=== PATIENT | female | born 1965 | race African-American/Black ===

== ENCOUNTER 2016-09-13 14:36 | Emergency (ER) | payer OTHER ==
[2016-09-13 14:44] VITALS: BP 109/65
--- NOTE | 2016-09-13 14:46 | ER Document Report ---
ED Medical Screen (RME) - General Stated Complaint: BACK PAIN Notes: 51 yo female c/o right flank pain radiating to RLQ since yesterday. no urinary symptoms. no n/v. no fever. + hx/o IDDM TRAVEL OUTSIDE OF THE [place] IN LAST 30 DAYS: No - Related Data Allergies/Adverse Reactions: No Known Allergies Allergy (Verified 09/13/16 14:44) Past Medical History - Past Medical History Cardiac Medical History: Reports: Hx Hypercholesterolemia, Hx Hypertension Endocrine Medical History: Reports: Hx Diabetes Mellitus Type 1, Hx Diabetes Mellitus Type 2 Psychiatric Medical History: Reports: Hx Anxiety - Lots of stress Past Surgical History: Reports: Hx Cardiac Surgery - open heart - Immunizations Hx Diphtheria, Pertussis, Tetanus Vaccination: Yes Physical Exam - Vital signs Vitals: Temp Pulse Resp BP Pulse Ox 98.0 F 100 20 109/65 99 09/13/16 14:43 09/13/16 14:43 09/13/16 14:43 09/13/16 14:43 09/13/16 14:43 Course - Vital Signs Vital signs: Temp Pulse Resp BP Pulse Ox 98.0 F 100 20 109/65 99 09/13/16 14:43 09/13/16 14:43 09/13/16 14:43 09/13/16 14:43 09/13/16 14:43
[2016-09-13 15:06] LABS: ABSOLUTE BASOPHILS # (AUTO) 0.1 10^3/uL (0.0-0.2); ABSOLUTE LYMPHOCYTES (AUTO) 1.2 10^3/uL (0.5-4.7); ABSOLUTE MONOCYTES (AUTO) 0.8 10^3/uL (0.1-1.4); ABSOLUTE NEUT (AUTO) 4.6 10^3/uL (1.7-8.2); BASOPHILS % (AUTO) 1.1 % (0-2); HEMATOCRIT 40.5 % (36.0-47.0); HEMOGLOBIN 13.8 g/dL (12.0-15.5); HGB HCT DIFFERENCE 0.9; MEAN CORPUSCULAR HEMOGLOBIN 31.8 pg (27.0-33.4); MEAN CORPUSCULAR HGB CONC 34.1 g/dL (32.0-36.0); MEAN CORPUSCULAR VOLUME 93 fl (80-97); MONOCYTES % (AUTO) 11.7 % (3-13); RED BLOOD COUNT 4.34 10^6/uL (3.72-5.28); RED CELL DISTRIBUTION WIDTH 13.9 % (11.5-14.0); SEGMENTED NEUTROPHILS % (AUTO) 69.2 % (42-78); WHITE BLOOD COUNT 6.6 10^3/uL (4.0-10.5)
[2016-09-13 15:12] LABS: APPEARANCE,URINE SLIGHTLY-CLOUDY; BILIRUBIN,URINE NEGATIVE (NEGATIVE); GLUCOSE, URINE 50 mg/dL (NEGATIVE); KETONES,URINE NEGATIVE (NEGATIVE); LEUKOCYTE ESTERASE,URINE LARGE (NEGATIVE); NITRITE,URINE NEGATIVE (NEGATIVE); PROTEIN,URINE NEGATIVE (NEGATIVE); URINE SPECIFIC GRAVITY 1.006; UROBILINOGEN,URINE NEGATIVE mg/dL (<2.0)
[2016-09-13 15:30] LABS: ALANINE AMINOTRANSFERASE 20 U/L (9-52); ALBUMIN 3.8 g/dL (3.5-5.0); ALKALINE PHOSPHATASE 95 U/L (38-126); ANION GAP 10 (5-19); ASPARTATE AMINO TRANSFERASE 17 U/L (14-36); BILIRUBIN,TOTAL 0.6 mg/dL (0.2-1.3); BLOOD UREA NITROGEN 9 mg/dL (7-20); CARBON DIOXIDE 26 mmol/L (22-30); CHLORIDE 101 mmol/L (98-107); CREATININE RESULT 0.59 mg/dL (0.52-1.25); GLUCOSE 150 mg/dL (75-110); POTASSIUM 3.5 mmol/L (3.6-5.0); SODIUM 136.9 mmol/L (137-145); TOTAL PROTEIN 7.4 g/dL (6.3-8.2)
--- NOTE | 2016-09-13 17:14 | ER Document Report ---
ED Neck/Back Problem - General Chief Complaint: Back Pain Stated Complaint: BACK PAIN Notes: Patient is experiencing back pain for the past week that got worse last night. It's in the right flank area. 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 Denies any nausea or vomiting or diarrhea. Had a very large bowel movement today. Does not have any abdominal pain. Has no UTI symptoms. No significant cough or cold or chest congestion. Has not had any fever. Patient's last menstrual cycle was a couple of months ago. She's not sure if she is going through the "change", but says she has not been sexually active for over a year. History of pulmonary stenosis for which she's had a couple of cardiac surgeries. PMH: Hypertension, IDDM, high cholesterol. TRAVEL OUTSIDE OF THE [place] IN LAST 30 DAYS: No - Related Data Allergies/Adverse Reactions: No Known Allergies Allergy (Verified 09/13/16 14:44) Past Medical History - Social History Smoking Status: Never Smoker Chew tobacco use (# tins/day): No Frequency of alcohol use: None Drug Abuse: None Family History: Reviewed & Not Pertinent Patient has suicidal ideation: No Patient has homicidal ideation: No - Past Medical History Cardiac Medical History: Reports: Hx Hypercholesterolemia, Hx Hypertension, Hx Heart Murmur - History of pulmonic stenosis and has had a couple of surgical procedures. Endocrine Medical History: Reports: Hx Diabetes Mellitus Type 1, Hx Diabetes Mellitus Type 2 Psychiatric Medical History: Reports: Hx Anxiety - Lots of stress Past Surgical History: Reports: Hx Cardiac Surgery - open heart for pulmonic stenosis - Immunizations Hx Diphtheria, Pertussis, Tetanus Vaccination: Yes Hx Pneumococcal Vaccination: 07/16/11 Review of Systems - Review of Systems Notes: REVIEW OF SYSTEMS: CONSTITUTIONAL : Denies fever. EENT: Denies eye, ear, nose or mouth or throat pain or other symptoms. CARDIOVASCULAR: Denies chest pain. RESPIRATORY: Denies cough, chest congestion, or shortness of breath. GASTROINTESTINAL: Denies abdominal pain or nausea, vomiting, or diarrhea. GENITOURINARY: Denies difficulty or painful urinating, urinary frequency, blood in urine. MUSCULOSKELETAL: See history of present illness. Denies neck pain. Denies joint pain or swelling. SKIN: Denies rash or skin lesions. NEUROLOGICAL: Denies LOC or altered mental status. Denies headache. Denies sensory loss or motor deficits. ALL OTHER SYSTEMS REVIEWED AND NEGATIVE. Physical Exam - Vital signs Vitals: Temp Pulse Resp BP Pulse Ox 98.0 F 100 20 109/65 99 09/13/16 14:43 09/13/16 14:43 09/13/16 14:43 09/13/16 14:43 09/13/16 14:43 Interpretation: Normal - Notes Notes: PHYSICAL EXAMINATION: GENERAL: Well-appearing, in no acute distress. Vital signs are normal. Afebrile. HEAD: Atraumatic, normocephalic. NECK: Normal range of motion, supple. LUNGS: Breath sounds clear and equal bilaterally. HEART: Regular rate and rhythm without murmurs. ABDOMEN: Soft, nontender. No guarding or rebound. No masses felt. No bruits heard. BACK: No tenderness throughout entire back. Tender to percussion in the right paralumbar flank region. EXTREMITIES: Normal range of motion without pain. NEUROLOGICAL: Normal speech, normal gait. Normal sensory, motor, and reflex exams. Awake, alert, and oriented x3. Cranial nerves normal. PSYCH: Normal mood, normal affect. SKIN: Warm, dry, no rashes. Course - Vital Signs Vital signs: Temp Pulse Resp BP Pulse Ox 98.0 F 100 20 109/65 99 09/13/16 14:43 09/13/16 14:43 09/13/16 14:43 09/13/16 14:43 09/13/16 14:43 - Laboratory Result Diagrams: 09/13/16 14:55 09/13/16 14:55 Laboratory results interpreted by me: 09/13/16 09/13/16 14:55 14:55 Sodium 136.9 L Potassium 3.5 L Glucose 150 H Urine Glucose (UA) 50 H Urine Blood MODERATE H Ur Leukocyte Esterase LARGE H 09/13/16 17:25 Urinalysis is suggestive of a possible UTI. Urine has been cultured. Patient will be placed on Macrobid. Given a few days off from work. Discharge - Discharge Clinical Impression: Flank pain, acute UTI (urinary tract infection) Qualifiers: Urinary tract infection type: site unspecified Hematuria presence: without hematuria Qualified Code(s): N39.0 - Urinary tract infection, site not specified Condition: Stable Disposition: HOME, SELF-CARE Additional Instructions: Flank Pain We weren't able to prove an exact cause for your flank pain. Pain in the flank can be caused by a muscle strain or spasm. Sometimes a kidney stone causes pain, but can't be found on our tests. Infection in the kidney should be evident on a urine test. Early shingles can occasionally cause flank pain, without the rash that proves the diagnosis. On rare occasions, disease of the pancreas, aorta, spleen, or colon can create pain in the flank. At this time, there's no evidence of a dangerous condition, and it seems safe for you to be at home. If the pain goes away and does not come back, no further testing will be needed. If pain persists, or becomes more severe, we may need to repeat some tests or order additional new testing. Blood in the urine, urgency to urinate frequently, and pain that radiates to the groin can indicate a kidney stone. Fever may mean that the pain is due to infection, either of the kidney or the colon (diverticulitis). If your pain is early shingles, you should develop an eruption of blisters in the painful area within a few days. Call the doctor or return if you have pain that is spreading or becoming more severe, pain that does not resolve with time, fever, or any other new symptoms. URINARY TRACT INFECTION: Your evaluation indicates that you have a urinary tract infection. This is due to germs growing in the bladder. This is a common problem. This infection usually responds quickly to antibiotics. Your antibiotic should be taken exactly as prescribed. Drink plenty of fluids -- three to four quarts a day. Occasionally, a bladder anesthetic will be prescribed to help stop the feeling of urgency until the antibiotic has a chance to clear the infection. This may cause your urine to be dark orange. Certain urine infections require a culture. If the doctor obtained a culture, the results will be back in two days. You should call to see if a change in treatment is needed. A repeat urinalysis after you finish treatment is often recommended. The physician will let you know if further testing is required. Call the doctor if you develop fever, chills, flank pain, inability to urinate, or blood in the urine. ANTIBIOTIC THERAPY: You have been given an antibiotic prescription. It's important that you take all the medication, unless instructed otherwise by your physician. Failure to complete the entire course can result in relapse of your condition. Common side effects of antibiotics include nausea, intestinal cramping, or diarrhea. Women may develop vaginal yeast infections, and babies can get yeast (thrush) in the mouth following the use of antibiotics. Contact your physician if you develop significant side effects from this medication. Allergy to this antibiotic can result in hives, wheezing, faintness, or itching. If symptoms of allergy occur, stop the medication and call the doctor. NITROFURANTOIN (MACRODANTIN, MACROBID): You have received a prescription for nitrofurantoin (Macrodantin). This antibiotic is used for urinary tract infections. Women who are or nursing should notify the physician before taking this medicine. If you have ever had a problem caused by this medication in the past, be sure the physician is aware of it. Common side effects of this medicine include nausea, vomiting, or decreased appetite. Notify your physician if these side effects become severe. Immediately stop this medicine and call the physician if you develop cough , shortness of breath, chest pain, weakness, jaundice (yellow color of the skin and whites of the eyes), or a skin rash. Oral Narcotic Medication You have been given a prescription for pain control. This medication is a narcotic. It's best taken with food, as nausea can result if taken on an empty stomach. Don't operate machinery or drive within six hours of taking this medication. Do not combine this medicine with alcohol, or with any medication which can cause sedation (such as cold tablets or sleeping pills) unless you get permission from the physician. Narcotics tend to cause constipation. If possible, drink plenty of fluids and eat a diet high in fiber and fruits. FOLLOW-UP CARE: If you have been referred to a physician for follow-up care, call the physician s office for an appointment as you were instructed or within the next two days. If you experience worsening or a significant change in your symptoms, notify the physician immediately or return to the Emergency Department at any time for re-evaluation. Return for reevaluation if you develop new or worsening symptoms such as fever, vomiting, or worsening back/flank pain. Prescriptions: Nitrofurantoin/Nitrofuran Mac [Macrobid 100 mg Capsule] 1 tab PO BID #20 capsule Oxycodone HCl/Acetaminophen [Percocet 5-325 mg Tablet] 1 - 2 tab PO Q4H PRN #15 tablet PRN Reason: Forms: Return to Work
== END 2016-09-13 17:21 | disposition home or self-care (01) ==
LOC: ER 14:36
DX: N39.0 Urinary tract infection, site not specified (principal); R10.9 Unspecified abdominal pain; M54.9 Dorsalgia, unspecified; I10 Essential (primary) hypertension; E78.00 Pure hypercholesterolemia, unspecified; Z79.4 Long term (current) use of insulin
CPT/HCPCS: 36415; 80053; 81001; 85025; 87086; 99284

== ENCOUNTER 2016-12-04 00:17 | Emergency (ER) | payer OTHER ==
--- NOTE | 2016-12-04 03:46 | ER Document Report ---
ED GI/ - General Chief Complaint: Vaginal Itching Stated Complaint: VAGINAL ISSUE Time Seen by Provider: 12/04/16 03:39 Notes: Patient is a 51-year-old female who comes emergency department for chief complaint of 2 days of vaginal irritation and dysuria. She states there is a whitish looking discharge. She is diabetic, she states she binge ate for a few days but now she has resumed her normal insulin. She has not been on recent antibiotics. She states she is not sexually active. She denies any fever, chills, nausea, vomiting, flank pain. She denies any vaginal bleeding. TRAVEL OUTSIDE OF THE [place] IN LAST 30 DAYS: No - Related Data Allergies/Adverse Reactions: No Known Allergies Allergy (Verified 12/04/16 01:41) Past Medical History - General Information source: Patient - Social History Smoking Status: Never Smoker Frequency of alcohol use: None Drug Abuse: None Lives with: Family Family History: Reviewed & Not Pertinent Patient has suicidal ideation: No Patient has homicidal ideation: No - Past Medical History Cardiac Medical History: Reports: Hx Hypercholesterolemia, Hx Hypertension, Hx Heart Murmur - History of pulmonic stenosis and has had a couple of surgical procedures. Endocrine Medical History: Reports: Hx Diabetes Mellitus Type 2 Renal/ Medical History: Denies: Hx Peritoneal Dialysis Psychiatric Medical History: Reports: Hx Anxiety - Lots of stress Past Surgical History: Reports: Hx Cardiac Surgery - open heart for pulmonic stenosis - Immunizations Hx Diphtheria, Pertussis, Tetanus Vaccination: Yes Hx Pneumococcal Vaccination: 07/16/11 Review of Systems - Review of Systems Constitutional: No symptoms reported EENT: No symptoms reported Cardiovascular: No symptoms reported Respiratory: No symptoms reported Gastrointestinal: No symptoms reported Genitourinary: See HPI Female Genitourinary: See HPI Musculoskeletal: No symptoms reported Skin: No symptoms reported Hematologic/Lymphatic: No symptoms reported Neurological/Psychological: No symptoms reported Physical Exam - Vital signs Vitals: Temp Pulse Resp BP Pulse Ox 97.8 F 98 16 125/74 97 12/04/16 01:37 12/04/16 01:37 12/04/16 01:37 12/04/16 01:37 12/04/16 01:37 Interpretation: Normal - General General appearance: Alert, Other - Patient shifts frequently and appears mildly uncomfortable - HEENT Head: Normocephalic, Atraumatic Eyes: Normal Conjunctiva: Normal Extraocular movements intact: Yes Eyelashes: Normal Pupils: PERRL Mouth/Lips: Normal Mucous membranes: Normal Pharynx: Normal Neck: Normal - Respiratory Respiratory status: No respiratory distress Chest status: Nontender Breath sounds: Normal Chest palpation: Normal - Cardiovascular Rhythm: Regular. No: Tachycardia Heart sounds: Normal auscultation, S1 appreciated, S2 appreciated Murmur: No - Abdominal Inspection: Normal Distension: No distension Bowel sounds: Normal Tenderness: Nontender. No: Tender Organomegaly: No organomegaly - Genitourinary External exam: Lesions - dotted areas that appear to be excoriated vesicles on the distal inner labial folds, erythema and irritation to all labias, no induration or fluctuance. PCT Merry present during exam Speculum exam: Cervix closed, Vaginal discharge - large amount of whitish vaginal discharge Vaginal bleeding: None Bimanuel exam: Normal. No: Cervical motion tender - Back Back: Normal, Nontender - Extremities General upper extremity: Normal inspection, Nontender, Normal color, Normal ROM , Normal temperature General lower extremity: Normal inspection, Nontender, Normal color, Normal ROM , Normal temperature, Normal weight bearing. No: Leola's sign - Neurological Neuro grossly intact: Yes Cognition: Normal Orientation: AAOx4 Sandra Coma Scale Eye Opening: Spontaneous Sandra Coma Scale Verbal: Oriented Sandra Coma Scale Motor: Obeys Commands Sandra Coma Scale Total: 15 Speech: Normal Motor strength normal: LUE, RUE, LLE, RLE Sensory: Normal - Psychological Associated symptoms: Normal affect, Normal mood - Skin Skin Temperature: Warm Skin Moisture: Dry Skin Color: Normal Course - Re-evaluation Re-evalutation: On examination patient is uncomfortable, there is a large amount of vaginal irritation, discharge, there are abnormal areas on the inner labialis which appear to be excoriated vesicles no induration or fluctuation. Viral culture pending,. Nontender abdomen, no flank pain, no fever. Wet mount shows 3+ bacteria and 3+ white blood cells patient will be treated for bacterial vaginosis, covered for pelvic infection, treated for potential HSV viral outbreak,. Patient requests to be called at phone #[phone] if her pending gonorrhea or chlamydia results are positive. Gonorrhea and Chlamydia are negative. - Vital Signs Vital signs: Temp Pulse Resp BP Pulse Ox 97.7 F 75 20 110/67 94 05/22/17 05:50 12/04/16 05:50 12/04/16 05:50 12/04/16 05:50 12/04/16 05:50 Discharge - Discharge Clinical Impression: Vaginal pain, Vaginal discharge Condition: Stable Disposition: HOME, SELF-CARE Additional Instructions: You have been treated for a pelvic infection, also covered for bacterial vaginosis and possible HSV infection. Follow up with Primary Care. Return to the ED for any concerning or worsening symptoms. Prescriptions: Hydrocodone/Acetaminophen [Blue Grass 5-325 mg Tablet] 1 - 2 tab PO ASDIR #10 tablet Metronidazole [Flagyl 500 mg Tablet] 500 mg PO BID #14 tablet Valacyclovir HCl [Valtrex] 1,000 mg PO BID #20 tablet Forms: Return to Work
[2016-12-04] MEDS ORDERED: LIDOCAINE 1% INJ-PF (10 MG/ML) 30 ML SDV INJ ONE (05:15)
[2016-12-04] MEDS ORDERED: AZITHROMYCIN 250 MG TABLET PO ONE (05:15)
[2016-12-04] MEDS ORDERED: CEFTRIAXONE INJ 250 MG VIAL IM ONE (05:15)
[2016-12-04] MEDS ORDERED: METRONIDAZOLE 500 MG TABLET PO ONE (05:16)
[2016-12-04] MEDS ORDERED: VALACYCLOVIR HCL 500 MG TABLET PO ONE (05:25)
[2016-12-04] MEDS ORDERED: HYDROCODONE/ACETAMINOPHEN 5-325 MG 6 TAB/DSPK PO PRN (05:29)
[2016-12-04 06:06] LABS: CHLAM PCR NOT DETECTED (NOT DETECT)
[2016-12-04 06:15] VITALS: BP 110/67
== END 2016-12-04 06:00 | disposition home or self-care (01) ==
LOC: ER 00:17
DX: R10.2 Pelvic and perineal pain (principal); L98.9 Disorder of the skin and subcutaneous tissue, unspecified; N89.8 Other specified noninflammatory disorders of vagina; R30.0 Dysuria; E11.9 Type 2 diabetes mellitus without complications; I10 Essential (primary) hypertension
CPT/HCPCS: 99283; 96372; 87210; 87252; 87491; 87591; J3490; J0696

== ENCOUNTER 2016-12-18 16:38 | Emergency (ER) | payer OTHER ==
[2016-12-18 16:43] VITALS: BP 115/82
--- NOTE | 2016-12-18 17:48 | ER Document Report ---
ED GI/ - General Chief Complaint: Vaginal Itching Stated Complaint: VAGINAL PAIN/URINARY SYMPTOMS Time Seen by Provider: 12/18/16 16:58 Mode of Arrival: Ambulatory Information source: Patient Notes: 51-year-old female presents to ED for dental pain itching and discharge. States she has pain with urination. She states she was recently treated with Valtrex for vaginal herpes and Flagyl for vaginal itching and the pain and itching have returned. TRAVEL OUTSIDE OF THE [place] IN LAST 30 DAYS: No - HPI Patient complains to provider of: Vaginal discharge, Vaginal pain, Other - No acute Onset: Last week Timing/Duration: Intermittent Quality of pain: Burning Severity at maximum: Moderate Severity in ED: Moderate Pain Level: 3 Location: Vaginal Vaginal bleeding (Compared to normal period): None Associated symptoms: Vaginal discharge, Other - Vaginal pain and itching Exacerbated by: Movement, Other - Urination Relieved by: Denies Similar symptoms previously: Yes Recently seen / treated by doctor: Yes - Related Data Allergies/Adverse Reactions: No Known Allergies Allergy (Verified 12/18/16 16:41) Past Medical History - General Information source: Patient - Social History Smoking Status: Never Smoker Cigarette use (# per day): No Chew tobacco use (# tins/day): No Smoking Education Provided: No Frequency of alcohol use: Occasional Drug Abuse: None Lives with: Family Family History: DM. denies: Arthritis, CAD, COPD, CVA, Hyperlipidemia, Hypertension, Malignancy, Thyroid Disfunction Patient has suicidal ideation: No Patient has homicidal ideation: No - Past Medical History Cardiac Medical History: Reports: Hx Hypercholesterolemia, Hx Hypertension, Hx Heart Murmur - History of pulmonic stenosis and has had a couple of surgical procedures. Pulmonary Medical History: Reports: None EENT Medical History: Reports: None Neurological Medical History: Reports: None Endocrine Medical History: Reports: Hx Diabetes Mellitus Type 1, Hx Diabetes Mellitus Type 2 Renal/ Medical History: Reports: Other - Vaginal herpes Malignancy Medical History: Reports: None GI Medical History: Reports: None Musculoskeltal Medical History: Reports None Skin Medical History: Reports None Psychiatric Medical History: Reports: Hx Anxiety - Lots of stress Traumatic Medical History: Reports: None Infectious Medical History: Reports: None Past Surgical History: Reports: Hx Cardiac Surgery - open heart for pulmonic stenosis - Immunizations Immunizations up to date: Yes Hx Diphtheria, Pertussis, Tetanus Vaccination: Yes Hx Pneumococcal Vaccination: 07/16/11 Review of Systems - Review of Systems Constitutional: No symptoms reported EENT: No symptoms reported Cardiovascular: No symptoms reported Respiratory: No symptoms reported Gastrointestinal: No symptoms reported Genitourinary: No symptoms reported Female Genitourinary: Vaginal discharge, Other - Vaginal pain and itching Musculoskeletal: No symptoms reported Skin: No symptoms reported Hematologic/Lymphatic: No symptoms reported Neurological/Psychological: No symptoms reported -: Yes All other systems reviewed and negative Physical Exam - Vital signs Vitals: Temp Pulse Resp BP Pulse Ox 97.4 F 90 18 115/82 98 12/18/16 16:41 12/18/16 16:41 12/18/16 16:41 12/18/16 16:41 12/18/16 16:41 Interpretation: Normal - General General appearance: Appears well, Alert - HEENT Head: Normocephalic, Atraumatic Eyes: Normal Pupils: PERRL - Respiratory Respiratory status: No respiratory distress Chest status: Nontender Breath sounds: Normal Chest palpation: Normal - Cardiovascular Rhythm: Regular Heart sounds: Normal auscultation Murmur: No - Abdominal Inspection: Normal Distension: No distension Bowel sounds: Normal Tenderness: Nontender Organomegaly: No organomegaly - Genitourinary External exam: Normal. No: Lesions Speculum exam: Vaginal discharge - Minimal white Vaginal bleeding: None Bimanuel exam: Cervical motion tender, Adnexal mass - Back Back: Normal, Nontender - Extremities General upper extremity: Normal inspection, Nontender, Normal color, Normal ROM , Normal temperature General lower extremity: Normal inspection, Nontender, Normal color, Normal ROM , Normal temperature, Normal weight bearing. No: Elola's sign - Neurological Neuro grossly intact: Yes Cognition: Normal Orientation: AAOx4 Sandra Coma Scale Eye Opening: Spontaneous Sandra Coma Scale Verbal: Oriented Sandra Coma Scale Motor: Obeys Commands Sandra Coma Scale Total: 15 Speech: Normal Motor strength normal: LUE, RUE, LLE, RLE Sensory: Normal - Psychological Associated symptoms: Normal affect, Normal mood - Skin Skin Temperature: Warm Skin Moisture: Dry Skin Color: Normal Course - Re-evaluation Re-evalutation: 12/18/16 19:43 Patient treated with flagyl and diflucan. - Vital Signs Vital signs: Temp Pulse Resp BP Pulse Ox 97.4 F 90 18 115/82 98 12/18/16 16:41 12/18/16 16:41 12/18/16 16:41 12/18/16 16:41 12/18/16 16:41 - Laboratory Laboratory results interpreted by me: 12/18/16 17:33 Urine Glucose (UA) >=500 H Urine Blood MODERATE H Ur Leukocyte Esterase MODERATE H Discharge - Discharge Clinical Impression: Bacterial vaginosis, Lizett vaginitis Condition: Stable Disposition: HOME, SELF-CARE Instructions: Family Physicians / Practices Additional Instructions: VAGINOSIS, BACTERIAL: Your exam shows you have bacterial vaginosis. This condition is due to an overgrowth of bacteria in the vagina. Symptoms may include vaginal itching or pain, a smelly discharge, and sometimes burning with urination. Normally this is not transmitted by sexual contact. Vaginosis can be treated with oral or topical antibiotics. Metronidazole ( Flagyl) pills are usually effective. Topical vaginal creams include Cleocin and Metro-Gel. You should avoid sexual contact until your symptoms are all better. Call the doctor if you develop pelvic pain, fever, or problems with urination, or if you don't improve as expected. VAGINAL YEAST INFECTION: You have evidence of a yeast infection -- called "lizett." A vaginal yeast infection often causes itching and discharge. While not dangerous, it can be very unpleasant. A yeast infection often follows the use of powerful antibiotics. It is more likely to occur in diabetics. The treatment now is usually a single pill of Diflucan, but also an antifungal cream or suppository may be used for a few days. You do not need to avoid sexual intercourse. Recurrences are common. You can make a recurrence less likely by wearing cotton underwear and avoiding tight clothing. For mild recurrences, you can try dwuw-oeo-vahxyir creams or suppositories that are made specifically for yeast. If the symptoms do not resolve, you should follow up for re-examination. Sometimes treatment of the sexual partner is necessary if infections are recurrent. METRONIDAZOLE: Metronidazole (Flagyl) has been prescribed. This medication is used to kill a type of bacteria called anaerobes, and protozoan parasites such as trichomonas and Giardia. Flagyl often causes a metallic taste in the mouth and mild nausea. Do not use alcohol in any form with Flagyl (including alcohol in medication elixirs). Flagyl interacts with alcohol to cause flushing, palpitations, headache, stomach cramps, and vomiting. Do not use Flagyl if you are taking Antabuse (disulfiram). Call the doctor at once if you develop rash, shortness of breath, itching, or lightheadedness. FLUCONAZOLE: Fluconazole (Diflucan) is an antifungal drug. It is useful for serious fungal infections, but is also excellent for oral or vaginal yeast infections. Diflucan interacts with some medicines. This is a concern if you are taking anticoagulants (such as Coumadin), phenytoin (Dilantin), cyclosporin, or oral hypoglycemics (such as tolbutamide, Orinase, glipizide, Glucotrol, glyburide, DiaBeta, Glynase, and Micronase). Be sure the doctor knows if you are taking one of these medicines. We don't know how Diflucan affects . If you are planning to become , discuss this with your doctor. Diflucan has few side effects. Minor side effects may include nausea, headache, or diarrhea. Call the doctor if you develop a skin rash, shortness of breath, or other new symptoms. FOLLOW-UP CARE: If you have been referred to a physician for follow-up care, call the physician s office for an appointment as you were instructed or within the next two days. If you experience worsening or a significant change in your symptoms, notify the physician immediately or return to the Emergency Department at any time for re-evaluation. Prescriptions: Metronidazole [Flagyl 500 mg Tablet] 500 mg PO BID #14 tablet Forms: Return to Work
[2016-12-18 18:02] LABS: APPEARANCE,URINE SLIGHTLY-CLOUDY; BILIRUBIN,URINE NEGATIVE (NEGATIVE); GLUCOSE, URINE >=500 mg/dL (NEGATIVE); KETONES,URINE NEGATIVE (NEGATIVE); LEUKOCYTE ESTERASE,URINE MODERATE (NEGATIVE); NITRITE,URINE NEGATIVE (NEGATIVE); PROTEIN,URINE NEGATIVE (NEGATIVE); URINE SPECIFIC GRAVITY 1.035; UROBILINOGEN,URINE NEGATIVE mg/dL (<2.0)
[2016-12-18 19:12] LABS: CHLAM PCR NOT DETECTED (NOT DETECT)
[2016-12-18] MEDS ORDERED: METRONIDAZOLE 500 MG TABLET PO ONE (19:41)
[2016-12-18] MEDS ORDERED: FLUCONAZOLE 100 MG TABLET PO ONE (19:41)
== END 2016-12-18 19:55 | disposition home or self-care (01) ==
LOC: ER 16:38
DX: N76.0 Acute vaginitis (principal); B96.89 Other specified bacterial agents as the cause of diseases classified elsewhere; B37.3 Candidiasis of vulva and vagina; I10 Essential (primary) hypertension; E11.9 Type 2 diabetes mellitus without complications
CPT/HCPCS: 81001; 87210; 87491; 87591; 99283

== ENCOUNTER 2018-01-20 08:40 | Emergency (ER) | payer OTHER ==
[2018-01-20 08:54] VITALS: BP 109/65
--- NOTE | 2018-01-20 09:21 | ER Document Report ---
HPI - HPI Patient complains to provider of: Needs insulin Onset: Other - 2 days ago Pain Level: 2 Context: 52-year-old female type I diabetic for 20 years ran out of her NovoLog and Lantus 2 days ago. Her glucose was over 200 this morning and she is a mild headache. Mild nausea. No vomiting. She drinks a lot of water this morning in her glucose at this time is 147. No abdominal pain. She recently moved back from [place] and does not have a primary care doctor. Associated Symptoms: None Exacerbated by: Denies Relieved by: Denies - ROS ROS below otherwise negative: Yes Systems Reviewed and Negative: Yes All other systems reviewed and negative - EENT EENT: DENIES: Sore Throat - NEURO Neurology: REPORTS: Headache - CARDIOVASCULAR Cardiovascular: DENIES: Chest pain - GASTROINTESTINAL Gastrointestinal: DENIES: Abdominal Pain - URINARY Urinary: DENIES: Dysuria - REPRODUCTIVE Reproductive: DENIES: : Past Medical History - General Information source: Patient - Social History Smoking Status: Never Smoker Chew tobacco use (# tins/day): No Frequency of alcohol use: Occasional Drug Abuse: None Family History: DM Patient has suicidal ideation: No Patient has homicidal ideation: No - Past Medical History Cardiac Medical History: Reports: Hx Hypercholesterolemia, Hx Hypertension, Hx Heart Murmur - History of pulmonic stenosis and has had a couple of surgical procedures. Endocrine Medical History: Reports: Hx Diabetes Mellitus Type 1 Renal/ Medical History: Denies: Hx Peritoneal Dialysis Psychiatric Medical History: Reports: Hx Anxiety - Lots of stress Past Surgical History: Reports: Hx Cardiac Surgery - open heart for pulmonic stenosis - Immunizations Immunizations up to date: Yes Hx Diphtheria, Pertussis, Tetanus Vaccination: Yes Hx Pneumococcal Vaccination: 07/16/11 Vertical Provider Document - CONSTITUTIONAL Agree With Documented VS: Yes Exam Limitations: No Limitations General Appearance: No Apparent Distress - INFECTION CONTROL TRAVEL OUTSIDE OF THE [place] IN LAST 30 DAYS: No - HEENT HEENT: Normal ENT Exam - NECK Neck: Supple. negative: Lymphadenopathy-Left, Lymphadenopathy-Right - RESPIRATORY Respiratory: Breath Sounds Normal, No Respiratory Distress - CARDIOVASCULAR Cardiovascular: Regular Rate, Regular Rhythm - GI/ABDOMEN Gastrointestinal: Abdomen Soft, Abdomen Non-Tender - MUSCULOSKELETAL/EXTREMETIES Musculoskeletal/Extremeties: MAEW - NEURO Level of Consciousness: Alert Course - Re-evaluation Re-evalutation: 07/08/18 09:38 Accu-Chek is 147. - Vital Signs Vital signs: Temp Pulse Resp BP Pulse Ox 97.8 F 91 12 109/65 99 01/20/18 08:53 01/20/18 08:53 01/20/18 08:53 01/20/18 08:53 01/20/18 08:53 Discharge - Discharge Clinical Impression: DM 1, Medication refill Condition: Good Disposition: HOME, SELF-CARE Instructions: Diabetes (OM) Additional Instructions: see family practice doctor see special warfare operator to er any concerns Dr. Vamsi Steiner MD Endocrinology, Diabetes & Metabolism [facility] [address] [place] [address] Contact Information Prescriptions: Insulin Glargine,Hum.rec.anlog [Lantus] 40 unit SQ QHS #3 vial Insulin Aspart [Novolog Insulin 100 Unit/1 ml 10 ml] 5 unit SUBCUT AC #10 ml Referrals: LETI WILDER NP [[facility]AFF] - Follow up as needed
== END 2018-01-20 09:54 | disposition home or self-care (01) ==
LOC: ER 08:40
DX: E10.9 Type 1 diabetes mellitus without complications (principal); Z79.4 Long term (current) use of insulin
CPT/HCPCS: 82962; 99282

== ENCOUNTER 2018-07-27 08:44 | Emergency (ER) | payer OTHER ==
[2018-07-27 08:50] VITALS: BP 105/71
[2018-07-27] MEDS ORDERED: GABAPENTIN 100 MG CAPSULE PO ONE (09:13)
--- NOTE | 2018-07-27 09:17 | ER Document Report ---
ED General - General Chief Complaint: Leg Pain Stated Complaint: PAIN IN LEFT LEG Time Seen by Provider: 07/27/18 09:04 TRAVEL OUTSIDE OF THE [place] IN LAST 30 DAYS: No - HPI Patient complains to provider of: Bilateral foot and leg pain Notes: Patient presents today diabetic states poorly controlled coming in for bilateral foot and leg pain patient states worse in the morning when she wakes up sharp shooting stabbing pain. Patient denies any recent travel denies any recent antibiotics denies any trauma to her legs. Patient denies fevers chills nausea vomiting diarrhea chest pain abdominal pain. Patient is resting of upon my evaluation denies any new shoes. Patient states she is never been diagnosed with diabetic neuropathy in the past. Patient unaware of her last hemoglobin A1c is currently does not have a primary care provider here in the area. - Related Data Allergies/Adverse Reactions: No Known Allergies Allergy (Verified 01/20/18 08:41) Past Medical History - Social History Smoking Status: Unknown if Ever Smoked Family History: Reviewed & Not Pertinent - Remain, DM - Past Medical History Cardiac Medical History: Reports: Hx Hypercholesterolemia, Hx Hypertension, Hx Heart Murmur - History of pulmonic stenosis and has had a couple of surgical procedures. Endocrine Medical History: Reports: Hx Diabetes Mellitus Type 1, Hx Diabetes Mellitus Type 2 Renal/ Medical History: Denies: Hx Peritoneal Dialysis Psychiatric Medical History: Reports: Hx Anxiety - Lots of stress Past Surgical History: Reports: Hx Cardiac Surgery - open heart for pulmonic stenosis - Immunizations Immunizations up to date: Yes Hx Diphtheria, Pertussis, Tetanus Vaccination: Yes Hx Pneumococcal Vaccination: 07/16/11 Review of Systems - Review of Systems Constitutional: No symptoms reported EENT: No symptoms reported Cardiovascular: No symptoms reported Respiratory: No symptoms reported Gastrointestinal: No symptoms reported Genitourinary: No symptoms reported Female Genitourinary: No symptoms reported Musculoskeletal: Other - Bilateral foot and leg pain Skin: No symptoms reported Hematologic/Lymphatic: No symptoms reported Neurological/Psychological: No symptoms reported -: Yes All other systems reviewed and negative Physical Exam - Vital signs Vitals: Temp Pulse Resp BP Pulse Ox 98.4 F 92 16 105/71 99 07/27/18 08:49 07/27/18 08:49 07/27/18 08:49 07/27/18 08:49 07/27/18 08:49 Interpretation: Normal - General General appearance: Appears well, Alert - HEENT Head: Normocephalic, Atraumatic Eyes: Normal Pupils: PERRL - Respiratory Respiratory status: No respiratory distress Chest status: Nontender Breath sounds: Normal Chest palpation: Normal - Cardiovascular Rhythm: Regular Heart sounds: Normal auscultation Murmur: No - Abdominal Inspection: Normal Distension: No distension Bowel sounds: Normal Tenderness: Nontender Organomegaly: No organomegaly - Back Back: Normal, Nontender - Extremities General upper extremity: Normal inspection, Nontender, Normal color, Normal ROM, Normal temperature General lower extremity: Normal inspection, Nontender, Normal color, Normal ROM, Normal temperature, Normal weight bearing. No: Leola's sign - Neurological Neuro grossly intact: Yes Cognition: Normal Orientation: AAOx4 Turrell Coma Scale Eye Opening: Spontaneous Sandra Coma Scale Verbal: Oriented Turrell Coma Scale Motor: Obeys Commands Sandra Coma Scale Total: 15 Speech: Normal Motor strength normal: LUE, RUE, LLE, RLE Sensory: Normal - Psychological Associated symptoms: Normal affect, Normal mood - Skin Skin Temperature: Warm Skin Moisture: Dry Skin Color: Normal Course - Re-evaluation Re-evalutation: 07/27/18 09:20 Patient's description of her pain is consistent with diabetic neuropathy will start patient on gabapentin 100 mg twice daily. Patient's information was given to our social science teacher to assist follow-up with her primary care physician otherwise patient will be discharged home - Vital Signs Vital signs: Temp Pulse Resp BP Pulse Ox 98.4 F 92 16 105/71 99 07/27/18 08:49 07/27/18 08:49 07/27/18 08:49 07/27/18 08:49 07/27/18 08:49 Discharge - Discharge Clinical Impression: Leg pain Qualifiers: Laterality: bilateral Qualified Code(s): M79.604 - Pain in right leg Foot pain Qualifiers: Laterality: bilateral Qualified Code(s): M79.671 - Pain in right foot Condition: Good Disposition: HOME, SELF-CARE Instructions: Diabetes ([facility]), Family Physicians / Practices, Neuropathy (OM), Plantar Fasciitis or Heel Spur ([facility]) Additional Instructions: Your evaluation is consistent today with diabetic neuropathy in your legs or p ossibly plantar fasciitis in your feet. I would highly recommend taking Neurontin for your pain control he may also take Tylenol for pain control. Please make sure you follow-up with your primary care physician to help control your chronic medical issues. I will give your information to our social workers today with You Sunday helping establish follow-up return to the ER if any symptoms worsen. Take medications as prescribed. Prescriptions: Gabapentin [Neurontin 100 mg Capsule] 100 mg PO Q12 #60 capsule Forms: Return to Work
== END 2018-07-27 09:22 | disposition home or self-care (01) ==
LOC: ER 08:44
DX: M79.604 Pain in right leg (principal); M79.671 Pain in right foot; M79.605 Pain in left leg; M79.672 Pain in left foot; I10 Essential (primary) hypertension; E11.9 Type 2 diabetes mellitus without complications
CPT/HCPCS: 99283